=== PATIENT | female | born 1930 | race Caucasian/White ===

== ENCOUNTER → 2016-06-29 | Outpatient (CLI) | payer MEDICARE ==
[~2016-06-29] MED LIST: ALPHA LIPOIC A200 MG; AMARYL2 MG PO; AMLODIPINE5 MG; AMOXICILLIN500 MG PO; ASPIR-LOW81 MG; CATALYST; FLONASE 0.05% 121 EA NAS; LOPRESSOR25 MG; METFORMIN500 MG; MOTRIN800 MG PO; SIMVASTATIN40 MG; [UNRECOGNIZED DRUG - OTHER]; [UNRECOGNIZED DRUG - OTHER]
[2016-06-29 07:30] LABS: BASO % 0.5 % (0.0-1.0); EOS # 0.1 10*3/uL (0.0-0.4); HEMATOCRIT 42.1 % (37.0-47.0); HEMOGLOBIN 13.9 g/dl (12.0-16.0); LYMPH # 2.3 10*3/uL (1.3-4.4); LYMPH % 37.4 % (27.0-41.0); MEAN CELL VOLUME 88.8 fl (81.0-99.0); MEAN CORPUSCULAR HGB 29.3 pg (27.0-31.0); MEAN PLATELET VOLUME 9.8 fl (9.6-12.3); MONO # 0.5 10*3/uL (0.1-1.0); MONO % 7.7 % (3.0-9.0); NEUT # 3.3 10*3/uL (2.3-7.9); NEUT % 53.2 % (47.0-73.0); PLATELET COUNT AUTOMATED 217 10*3/uL (130-400); RED BLOOD COUNT 4.74 10*6/uL (4.10-5.10); RED CELL DISTRI WIDTH 11.9 % (0-14.5); WHITE BLOOD COUNT 6.2 10*3/uL (4.8-10.8)
[2016-06-29 07:55] LABS: ALBUMIN 3.7 gm/dl (3.1-4.5); ALKALINE PHOSPHATASE 51 U/L (45-117); BILIRUBIN, DIRECT 0.1 mg/dL (0.0-0.2); BILIRUBIN, TOTAL 0.7 mg/dl (0.2-1.0); BUN 20 mg/dl (7-24); CARBON DIOXIDE 30 mmol/L (21-32); CHLORIDE 106 mmol/L (98-107); EST GLOM FILT AFRICAN AMERICAN > 60 ml/min; GLUCOSE 145 mg/dL (65-99); POTASSIUM 3.9 mmol/L (3.5-5.1); SGOT/AST 21 IU/L (3-35); SGPT/ALT 25 U/L (12-78); SODIUM 141 mmol/L (136-145); TOTAL PROTEIN 7.6 gm/dL (6.4-8.2)
[2016-06-29 07:57] LABS: HEMOGLOBIN A1c 7.2 % (4.8-5.6)
== END | disposition home or self-care (01) ==
LOC: LAB 07:08
PROVIDERS: Family Medicine
DX: I10 Essential (primary) hypertension (principal); E11.9 Type 2 diabetes mellitus without complications

== ENCOUNTER 2016-08-26 14:22 | Emergency (ER) | payer MEDICARE ==
[~2016-08-26] VITALS: Wt 67.1 kg
[2016-08-26] MEDS ORDERED: CEPHALEXIN500 M1 PO (15:08)
[2016-08-26] MEDS ORDERED: CLARITIN10 MG PO (15:08)
[2016-08-26] MEDS ORDERED: BACTRIM DS 8001 TA1 PO (15:08)
== END 2016-08-26 15:16 | disposition home or self-care (01) ==
LOC: ED 14:22
DX: L03.115 Cellulitis of right lower limb (principal)

== ENCOUNTER → 2016-10-11 | Outpatient (CLI) | payer MEDICARE ==
[~2016-10-11] MED LIST changes: +BACTRIM DS 8001 TA1 PO; +CEPHALEXIN500 M1 PO; +CLARITIN10 MG PO
[2016-10-11 07:55] LABS: BASO % 0.4 % (0.0-1.0); EOS # 0.1 10*3/uL (0.0-0.4); EOS % 1.1 % (1.0-4.0); HEMATOCRIT 43.1 % (37.0-47.0); HEMOGLOBIN 14.1 g/dl (12.0-16.0); LYMPH % 35.4 % (27.0-41.0); MEAN CELL VOLUME 92.1 fl (81.0-99.0); MEAN CORPUSCULAR HGB 30.1 pg (27.0-31.0); MEAN CORPUSCULAR HGB CONC 32.7 g/dl (33.0-37.0); MEAN PLATELET VOLUME 10.3 fl (9.6-12.3); MONO # 0.5 10*3/uL (0.1-1.0); MONO % 8.9 % (3.0-9.0); NEUT % 54.2 % (47.0-73.0); PLATELET COUNT AUTOMATED 215 10*3/uL (130-400); RED BLOOD COUNT 4.68 10*6/uL (4.10-5.10); RED CELL DISTRI WIDTH 12.5 % (0-14.5); WHITE BLOOD COUNT 5.6 10*3/uL (4.8-10.8)
[2016-10-11 08:14] LABS: HEMOGLOBIN A1c 6.9 % (4.8-5.6)
[2016-10-11 08:25] LABS: CHLORIDE 105 mmol/L (98-107); POTASSIUM 4.1 mmol/L (3.5-5.1); SODIUM 139 mmol/L (136-145)
[2016-10-11 08:37] LABS: ALBUMIN 3.8 gm/dl (3.1-4.5); ALKALINE PHOSPHATASE 52 U/L (45-117); BILIRUBIN, DIRECT 0.1 mg/dL (0.0-0.2); BILIRUBIN, TOTAL 0.8 mg/dl (0.2-1.0); BUN 24 mg/dl (7-24); CARBON DIOXIDE 26 mmol/L (21-32); CHOLESTEROL 334 mg/dL (<200); EST GLOM FILT AFRICAN AMERICAN > 60 ml/min; GLUCOSE 166 mg/dL (65-99); HDL CHOLESTEROL 82 mg/dl (40-60); LDL CHOLESTEROL 237 mg/dL (9-159); SGOT/AST 30 IU/L (3-35); SGPT/ALT 30 U/L (12-78); THYROXINE (T4) TOTAL 10.8 ug/dl (4.8-13.9); TRIGLYCERIDES 77 mg/dl (<150); VLDL CHOLESTEROL 15 mg/dL (6-40)
== END | disposition home or self-care (01) ==
LOC: LAB 07:10
PROVIDERS: Family Medicine
DX: E11.9 Type 2 diabetes mellitus without complications (principal); I10 Essential (primary) hypertension

== ENCOUNTER 2016-12-13 13:57 | Inpatient (IN) | payer MEDICARE ==
[~2016-12-13] VITALS: Ht 162.5 cm; Wt 69.4 kg
--- NOTE | ~2016-12-13 | PROC NOTE ---
[place], [place] PROCEDURE NOTE NAME: FABIAN GARCIA UNIT #: [id number] ROOM: [facility] DOCTOR: LETTY YOU BIRTHDATE: [birth year] DOS: 12/14/2016 MODIFIED BARIUM SWALLOW LOCATION: ICCU ROOM: [facility] 3-1 ORDERING PHYSICIAN: Dr. Ramirez. RADIOLOGIST: Dr. Noriega. BACKGROUND INFORMATION: The patient, an 86-year-old female, was seen for a modified barium swallow. This test was ordered to rule out aspiration. The patient presents with pneumonia and change in mental status. She also reports coughing with liquids. Further medical history is significant for HTN, DM, history of malignant neoplasm of the colon occurring 15 years ago, leukocytosis and metabolic encephalopathy. The patient currently receives a regular diet and thin liquids. For today's assessment, she was alert and able to follow commands. Respiratory status was reported as within normal limits. The patient was not receiving oxygen and reported no shortness of breath. She was noted to frequently cough at rest prior to and during the examination. Oral peripheral examination revealed presence of upper denture with adequate fit reported. Lingual, labial, and buccal skills were within normal limits in terms of strength, range of motion, and coordination. The patient was able to volitionally cough and swallow. METHODS AND MATERIALS USED FOR THE EXAM: The patient was positioned in the lateral plane and examination was viewed under fluoroscopy. The patient was presented with a variety of consistencies to assess swallowing skills including applesauce mixed with barium presented in half teaspoon amounts, barium-coated banana presented in bite sized piece, barium-coated sandwich presented in bite size piece and thin liquid barium taken both by cup and straw. The patient consumed liquids in both single and consecutive sip size amounts. ORAL PHASE: Unremarkable. PHARYNGEAL PHASE: The pharyngeal swallow occurred within a timely manner. During the swallow, laryngeal elevation and epiglottic function were adequate. There was no residue in the pharynx post-swallow. There was one instance of patient consuming thin liquid by straw and consecutive sip sized amounts where a very mild amount of transient upper airway penetration occurred. No aspiration occurred with this or any consistency. ESOPHAGEAL PHASE: This phase of the swallow was not formally assessed during this examination. IMPRESSIONS AND RECOMMENDATIONS: Based upon assessment results, this 86-year-old female presents with swallowing skills that are within functional limits. The patient consumed puree, soft solid and thin liquids taken both by [place], [place] PROCEDURE NOTE NAME: FABIAN GARCIA UNIT #: [id number] ROOM: [facility] DOCTOR: LETTY YOU BIRTHDATE: [birth year] cup and straw. When consuming thin liquid by straw and consecutive sips, there was one instance of a very mild transient upper airway penetration occurring. This can occur in normal individuals, especially in advanced age. No aspiration occurred with any consistency. Recommend patient remain on present diet with use of universal safe swallow precautions. Results and recommendations were shared with the patient and family member that accompanied her. The patient's nurse was also informed and verbalized understanding. No followup therapy is warranted at this time. Thank you very much for this referral. Should you have any questions regarding this patient, please contact the speech pathologist at [phone]. LETTY YOU CM:PROCNOTE:PROCEDURE NOTE [id number] JULIANA VELAZQUEZ
[~2016-12-13 13:57] MED LIST changes: -AMLODIPINE5 MG; +NORVASC2.5 MG PO
[2016-12-13 14:07] VITALS: BP 130/90
[2016-12-13] MEDS ORDERED: AVPAK AZITHROM250 M1 PO (14:31)
[2016-12-13 14:37] LABS: HEMATOCRIT 37.3 % (37.0-47.0); HEMOGLOBIN 12.1 g/dl (12.0-16.0); MEAN CELL VOLUME 90.3 fl (81.0-99.0); MEAN CORPUSCULAR HGB 29.3 pg (27.0-31.0); MEAN CORPUSCULAR HGB CONC 32.4 g/dl (33.0-37.0); MEAN PLATELET VOLUME 10.3 fl (9.6-12.3); PLATELET COUNT AUTOMATED 241 10*3/uL (130-400); RED BLOOD COUNT 4.13 10*6/uL (4.10-5.10); RED CELL DISTRI WIDTH 11.9 % (0-14.5); WHITE BLOOD COUNT 20.1 10*3/uL (4.8-10.8)
[2016-12-13 14:41] VITALS: BP 126/61
[2016-12-13 14:46] LABS: ACT PARTIAL THROMBO TIME 25.3 SECONDS (20.8-31.5); INTERNATIONAL NORM RATIO 1.2 (2.0-3.5)
[2016-12-13 14:54] LABS: ALBUMIN 3.1 gm/dl (3.1-4.5); ALKALINE PHOSPHATASE 129 U/L (45-117); BUN 21 mg/dl (7-24); CHLORIDE 97 mmol/L (98-107); CREATININE 1.16 mg/dL (0.55-1.02); LIPASE 60 U/L (73-393); SGOT/AST 62 IU/L (3-35); SGPT/ALT 75 U/L (12-78); SODIUM 130 mmol/L (136-145)
[2016-12-13 14:56] LABS: TOTAL CELLS COUNTED 100 #CELLS; TROPONIN I < 0.015 ng/ml (<0.045)
[2016-12-13 14:57] LABS: PLATELET SUFFICIENCY NORMAL (NORMAL); POLYCHROMASIA SLIGHT
[2016-12-13 15:00] VITALS: BP 126/61
[2016-12-13 15:30] VITALS: BP 123/63
[2016-12-13 15:31] LABS: BILIRUBIN 1+ (NEGATIVE); BLOOD 2+ (NEGATIVE); CLARITY CLOUDY (CLEAR); GLUCOSE 3+ (NEGATIVE); KETONE NEGATIVE (NEGATIVE); LEUKO ESTERASE 1+ (NEGATIVE); NITRITE POSITIVE (NEGATIVE); PH 5.5 (5.0-9.0)
[2016-12-13 15:36] LABS: COLOR YELLOW (YELLOW)
[2016-12-13 15:37] LABS: BACTERIA 4+
[2016-12-13 15:38] LABS: WBC 51-100 wbc/hpf (0-5)
[2016-12-13 16:30] VITALS: BP 119/54; BP 124/64
--- NOTE | 2016-12-13 16:30 | NUR ---
A 86, admitted to ICCU, under the services of JULIANA Lees DO with a diagnosis of PNEUMONIA. Chief complaint is CONFUSION, FEVER. Patient arrived via wheel chair from ER. Monitor applied. Initial assessment completed. Vital signs taken and recorded. JULIANA LEES DO notified of admission to the unit. Orders received. See assessment for past medical history, medications and allergies. Patient and/or family oriented to unit. [facility]U visitation policy reviewed. Clothing/patient valuable form completed. KITTY SALAS
--- NOTE | 2016-12-13 19:45 | NUR ---
PT EVALUATED FOR A PRN BREATHING TX. PT HAS RIGHT LOWER LOBE CRACKLES. PT STATES SHE FEELS OK AT THIS TIME. INFORMED TO CALL IF SHE EVER FEELS SOB OR WHEEZY. SPO2 IS 93% ON ROOM AIR.
[2016-12-13 20:00] VITALS: BP 117/62
--- NOTE | 2016-12-13 21:50 | NUR ---
PATIENT HAS RECIEVED BREATHING TREATMENT PATIENT STILL CONTINUES TO HAVE A PRODUCTIVE COUGH AT THIS TIME.
--- NOTE | 2016-12-13 23:42 | NUR ---
PATIENT LYING IN BED PATIENT STILL COUGHING PRODUCTIVE COUGH FOR YELLOWISH BROWN SPUTUM. PATIENT DENIES ANY NEEDS AT THIS TIME. VITALS CURRENTLY STABLE. WILL CONTINUE TO MONITOR.
[2016-12-14] VITALS: BP 106/54
--- NOTE | 2016-12-14 02:31 | NUR ---
patient has been coughing all night called doctor kenisha who said he would put in for something for the cough.
--- NOTE | 2016-12-14 02:50 | NUR ---
24 HR chart check completed.
[2016-12-14 04:00] VITALS: BP 157/77
--- NOTE | 2016-12-14 04:40 | NUR ---
MEDICATED WITH PO ROBITUSSIN ORDERED PER PT REQUEST FOR C/O COUGH.
[2016-12-14 04:44] LABS: BASO % 0.1 % (0.0-1.0); EOS % 0.1 % (1.0-4.0); HEMATOCRIT 35.4 % (37.0-47.0); HEMOGLOBIN 11.6 g/dl (12.0-16.0); LYMPH % 6.9 % (27.0-41.0); MEAN CORPUSCULAR HGB 29.8 pg (27.0-31.0); MEAN CORPUSCULAR HGB CONC 32.8 g/dl (33.0-37.0); MEAN PLATELET VOLUME 10.2 fl (9.6-12.3); MONO # 1.2 10*3/uL (0.1-1.0); MONO % 8.2 % (3.0-9.0); NEUT % 84.2 % (47.0-73.0); PLATELET COUNT AUTOMATED 215 10*3/uL (130-400); RED BLOOD COUNT 3.89 10*6/uL (4.10-5.10); RED CELL DISTRI WIDTH 12.1 % (0-14.5); WHITE BLOOD COUNT 14.3 10*3/uL (4.8-10.8)
[2016-12-14 05:06] LABS: ACT PARTIAL THROMBO TIME 27.3 SECONDS (20.8-31.5); INTERNATIONAL NORM RATIO 1.3 (2.0-3.5)
[2016-12-14 05:16] LABS: ALBUMIN 2.6 gm/dl (3.1-4.5); ALKALINE PHOSPHATASE 111 U/L (45-117); BUN 16 mg/dl (7-24); CHLORIDE 110 mmol/L (98-107); CREATININE 0.88 mg/dL (0.55-1.02); MAGNESIUM 2.3 mg/dL (1.5-2.1); PHOSPHOROUS 1.8 mg/dL (2.5-4.9); POTASSIUM 3.9 mmol/L (3.5-5.1); SGOT/AST 28 IU/L (3-35); SGPT/ALT 51 U/L (12-78); SODIUM 141 mmol/L (136-145)
[2016-12-14 05:21] LABS: FREE T4 1.63 ng/dl (0.76-1.46)
--- NOTE | 2016-12-14 05:27 | NUR ---
CALLED DOCTOR NICHO WITH + BLOOD [facility] THIS MORNING. HE SAID HE WOULD LOOK AT IT.
[2016-12-14 06:40] LABS: VITAMIN D, 25-HYDROXY 21.4 ng/mL (30-100)
[2016-12-14 08:00] VITALS: BP 152/77
--- NOTE | 2016-12-14 08:54 | NUR ---
TO RAD VIA WC AND PORTABLE MONITOR FOR BS
--- NOTE | 2016-12-14 09:52 | NUR ---
PATIENT NOT AVAILABLE FOR ECHO. HAVING PROEDURE IN RADIOLOGY.
--- NOTE | 2016-12-14 09:58 | NUR ---
SPEECH PATHOLOGY MBS completed as per orders. Patient was alert and cooperative. She was challenged with puree, soft solid and thin liquids, taken both by cup and straw. Patient tolerated consistencies well. When consuming thin liquid by straw in consecutive sips, there was one instance of very mild transient upper airway penetration occurring. No aspiration occurred with any consistency. Recommend patient remain on present diet with use of universal safe swallow precautions. Results and adam. were shared with patient and family member that accompanied her. Patient's nurse was also informed and verbalized understanding. No follow up treatment is warranted at this time. Dictated report to follow. Thank you for this referral. LETTY YOU MSCCC-LOT TECHNICIAN
--- NOTE | 2016-12-14 10:30 | NUR ---
DR PEREZ SERVICE NOTIFIED OF CONSULT
--- NOTE | 2016-12-14 12:17 | NUR ---
PHYSICAL THERAPY Chart review done; pt off floor for testing. Will attempt eval later as able. Tisha Jacobsen, PT
--- NOTE | 2016-12-14 13:05 | NUR ---
TRANSFERRED TO 406, FAMILY AWARE OF MOVE, REPORT GIVEN
--- NOTE | 2016-12-14 13:34 | NUR ---
PHYSICAL THERAPY Patient with staff at this time. Thank you for this referral. Marleny oPtts,PT
[2016-12-14 16:00] VITALS: BP 146/90
--- NOTE | 2016-12-14 19:45 | NUR ---
GIVEN PRN ROBITUSSIN FOR COUGH PER PATIENT REQUEST.
[2016-12-14 20:00] VITALS: BP 126/62
[2016-12-15] VITALS: BP 140/90
[2016-12-15 05:50] LABS: CHLORIDE 107 mmol/L (98-107); POTASSIUM 3.7 mmol/L (3.5-5.1); SODIUM 140 mmol/L (136-145)
[2016-12-15 05:53] LABS: BASO % 0.3 % (0.0-1.0); EOS # 0.1 10*3/uL (0.0-0.4); EOS % 0.6 % (1.0-4.0); HEMATOCRIT 34.5 % (37.0-47.0); HEMOGLOBIN 11.3 g/dl (12.0-16.0); LYMPH # 1.2 10*3/uL (1.3-4.4); LYMPH % 12.1 % (27.0-41.0); MEAN CELL VOLUME 90.8 fl (81.0-99.0); MEAN CORPUSCULAR HGB 29.7 pg (27.0-31.0); MEAN CORPUSCULAR HGB CONC 32.8 g/dl (33.0-37.0); MEAN PLATELET VOLUME 10.4 fl (9.6-12.3); MONO % 9.8 % (3.0-9.0); NEUT # 7.9 10*3/uL (2.3-7.9); NEUT % 76.8 % (47.0-73.0); PLATELET COUNT AUTOMATED 242 10*3/uL (130-400); RED CELL DISTRI WIDTH 12.3 % (0-14.5); WHITE BLOOD COUNT 10.2 10*3/uL (4.8-10.8)
[2016-12-15 05:54] LABS: BUN 13 mg/dl (7-24); CREATININE 0.74 mg/dL (0.55-1.02)
--- NOTE | 2016-12-15 06:40 | NUR ---
24 HR chart check completed.
[2016-12-15 08:00] VITALS: BP 137/79
[2016-12-15 12:00] VITALS: BP 136/80
[2016-12-15 16:00] VITALS: BP 117/66
[2016-12-15 20:00] VITALS: BP 118/58
--- NOTE | 2016-12-15 21:34 | NUR ---
Medicated with Restoril po prn for help with sleep. Will monitor effectiveness. Call light within reach.
--- NOTE | 2016-12-15 22:30 | NUR ---
Patient resting quietly in bed with eyes closed. Restoril effective. Will continue to monitor. Call light within reach.
[2016-12-16] VITALS: BP 140/79
--- NOTE | 2016-12-16 00:32 | NUR ---
24 HR chart check completed.
[2016-12-16 08:00] VITALS: BP 144/73
[2016-12-16 12:00] VITALS: BP 136/75
[2016-12-16 16:00] VITALS: BP 133/70
--- NOTE | 2016-12-16 18:55 | NUR ---
pt states her breathing is good and does not need a satx..states she will call if needed
[2016-12-16 20:00] VITALS: BP 130/73
[2016-12-17] VITALS: BP 145/82
--- NOTE | 2016-12-17 00:34 | NUR ---
24 HR chart check completed.
[2016-12-17 08:00] VITALS: BP 151/90
--- NOTE | 2016-12-17 09:32 | NUR ---
Wallcovering Hanger in to talk to patient. Patient states lives at home with alone. There are no steps in the home. Physician: eliana perry Pharmacy: [facility] health services: none Patient's level of ADLs: INDEPENDENT Patient has working utilities: all working DME: none Follow-up physician's appointment after d/c: will be made by hosptialist nurse director upon discharge Does patient want to access PORTAL?: no Discharge plan discussed with patient, patient lives in an apartment alone, she states she is independent in adls and ambulation, drives, patient states she will be going home when able and denies any home needs. KARIN MOSLEY
[2016-12-17] MEDS ORDERED: NEURONTIN300 MG PO (09:44)
[2016-12-17] MEDS ORDERED: CODEINE-GUAIFE120 M1 PO (09:46)
--- NOTE | 2016-12-17 09:46 | NUR ---
VERIFIED MEDS WITH RIMA AT [facility]. DR PERDUE NOTIFIED
[2016-12-17] MEDS ORDERED: LEVAQUIN750 M1 PO (09:59)
[2016-12-17] MEDS ORDERED: NORVASC5 MG PO (09:59)
--- NOTE | 2016-12-17 10:22 | NUR ---
PHYSICAL THERAPY PAtient evaluated on 4, full evaluation to follow. D/c PT after evaluation, patient (I) with no skilled PT needs. Thank you for this referral. Marleny Potts,PT
--- NOTE | 2016-12-17 10:32 | NUR ---
Discharge instructions reviewed with patient/family. Patient receptive and verbalizes understanding. Follow-up care arranged. Written instructions given to patient/family. DEMAR RIZZO
--- NOTE | 2016-12-17 10:46 | NUR ---
PATIENT AMBULATED TO THE EXIT WITH DAUGHTER. PATIENT IS D/C HOME
== END 2016-12-17 10:46 | disposition home or self-care (01) | DRG 871 ==
LOC: ED 13:57 → EDHOLD 15:10 → ICCU 15:10 → 4E 12-14 12:06
PROVIDERS: Internal Medicine; Nurse Practitioner Family; ADMIT Internal Medicine
PROC: F00ZJWZ Instrumental Swallowing and Oral Function Assessment using Swallowing Equipment (ICD-10-PCS; principal; 2016-12-14)
DX: A41.9 Sepsis, unspecified organism (principal); G93.41 Metabolic encephalopathy; N17.0 Acute kidney failure with tubular necrosis; J18.9 Pneumonia, unspecified organism; E87.1 Hypo-osmolality and hyponatremia; N39.0 Urinary tract infection, site not specified; E11.65 Type 2 diabetes mellitus with hyperglycemia; R65.20 Severe sepsis without septic shock; E87.8 Other disorders of electrolyte and fluid balance, not elsewhere classified; R31.9 Hematuria, unspecified; Z60.2 Problems related to living alone; E55.9 Vitamin D deficiency, unspecified; D64.9 Anemia, unspecified; I10 Essential (primary) hypertension; Z85.038 Personal history of other malignant neoplasm of large intestine; Z79.899 Other long term (current) drug therapy; Z90.710 Acquired absence of both cervix and uterus; Z90.49 Acquired absence of other specified parts of digestive tract; Z98.42 Cataract extraction status, left eye; Z98.41 Cataract extraction status, right eye; Z82.49 Family history of ischemic heart disease and other diseases of the circulatory system; Z80.1 Family history of malignant neoplasm of trachea, bronchus and lung; Z79.82 Long term (current) use of aspirin

== ENCOUNTER → 2017-01-15 | Outpatient (CLI) | payer MEDICARE ==
[~2017-01-15] MED LIST changes: +AVPAK AZITHROM250 M1 PO; +CODEINE-GUAIFE120 M1 PO; +LEVAQUIN750 M1 PO; +NEURONTIN300 MG PO; +NORVASC5 MG PO
[2017-01-15 08:22] LABS: BASO % 0.5 % (0.0-1.0); EOS # 0.1 10*3/uL (0.0-0.4); EOS % 1.6 % (1.0-4.0); HEMATOCRIT 41.5 % (37.0-47.0); HEMOGLOBIN 13.5 g/dl (12.0-16.0); LYMPH # 2.2 10*3/uL (1.3-4.4); LYMPH % 38.9 % (27.0-41.0); MEAN CELL VOLUME 89.8 fl (81.0-99.0); MEAN CORPUSCULAR HGB 29.2 pg (27.0-31.0); MEAN CORPUSCULAR HGB CONC 32.5 g/dl (33.0-37.0); MEAN PLATELET VOLUME 10.2 fl (9.6-12.3); MONO # 0.4 10*3/uL (0.1-1.0); MONO % 7.7 % (3.0-9.0); NEUT # 2.9 10*3/uL (2.3-7.9); NEUT % 51.1 % (47.0-73.0); PLATELET COUNT AUTOMATED 198 10*3/uL (130-400); RED BLOOD COUNT 4.62 10*6/uL (4.10-5.10); RED CELL DISTRI WIDTH 12.8 % (0-14.5); WHITE BLOOD COUNT 5.7 10*3/uL (4.8-10.8)
[2017-01-15 08:26] LABS: ALBUMIN 3.6 gm/dl (3.1-4.5); BILIRUBIN, DIRECT 0.1 mg/dL (0.0-0.2); BUN 22 mg/dl (7-24); CHLORIDE 105 mmol/L (98-107); CREATININE 0.83 mg/dL (0.55-1.02); POTASSIUM 3.9 mmol/L (3.5-5.1); SGOT/AST 20 IU/L (3-35); SGPT/ALT 25 U/L (12-78); SODIUM 141 mmol/L (136-145)
[2017-01-15 08:27] LABS: ALKALINE PHOSPHATASE 57 U/L (45-117); TOTAL PROTEIN 7.6 gm/dL (6.4-8.2)
== END | disposition home or self-care (01) ==
LOC: LAB 07:25
PROVIDERS: Family Medicine
DX: E11.9 Type 2 diabetes mellitus without complications (principal); I10 Essential (primary) hypertension

== ENCOUNTER → 2017-04-16 | Outpatient (CLI) | payer MEDICARE ==
[2017-04-16 08:45] LABS: BASO % 0.4 % (0.0-1.0); EOS # 0.1 10*3/uL (0.0-0.4); EOS % 1.6 % (1.0-4.0); HEMATOCRIT 42.1 % (37.0-47.0); LYMPH # 2.4 10*3/uL (1.3-4.4); LYMPH % 34.9 % (27.0-41.0); MEAN CELL VOLUME 88.4 fl (81.0-99.0); MEAN CORPUSCULAR HGB 29.4 pg (27.0-31.0); MEAN CORPUSCULAR HGB CONC 33.3 g/dl (33.0-37.0); MEAN PLATELET VOLUME 10.2 fl (9.6-12.3); MONO # 0.5 10*3/uL (0.1-1.0); MONO % 7.4 % (3.0-9.0); NEUT # 3.7 10*3/uL (2.3-7.9); NEUT % 55.6 % (47.0-73.0); PLATELET COUNT AUTOMATED 221 10*3/uL (130-400); RED BLOOD COUNT 4.76 10*6/uL (4.10-5.10); RED CELL DISTRI WIDTH 12.2 % (0-14.5); WHITE BLOOD COUNT 6.7 10*3/uL (4.8-10.8)
[2017-04-16 08:55] LABS: ALBUMIN 3.5 gm/dl (3.1-4.5); ALKALINE PHOSPHATASE 57 U/L (45-117); BILIRUBIN, DIRECT < 0.1 mg/dL (0.0-0.2); BUN 23 mg/dl (7-24); CHLORIDE 107 mmol/L (98-107); CREATININE 1.16 mg/dL (0.55-1.02); POTASSIUM 4.2 mmol/L (3.5-5.1); SGOT/AST 20 IU/L (3-35); SGPT/ALT 27 U/L (12-78); SODIUM 142 mmol/L (136-145); TOTAL PROTEIN 7.6 gm/dL (6.4-8.2)
== END | disposition home or self-care (01) ==
LOC: LAB 08:08
PROVIDERS: Family Medicine
DX: I10 Essential (primary) hypertension (principal); E11.9 Type 2 diabetes mellitus without complications

== ENCOUNTER → 2017-05-15 | Outpatient (CLI) | payer MEDICARE ==
[2017-05-15 09:30] LABS: BUN 28 mg/dl (7-24); CHLORIDE 106 mmol/L (98-107); CREATININE 0.87 mg/dL (0.55-1.02); POTASSIUM 3.7 mmol/L (3.5-5.1); SODIUM 139 mmol/L (136-145)
== END | disposition home or self-care (01) ==
LOC: LAB 08:49
PROVIDERS: Family Medicine
DX: N28.9 Disorder of kidney and ureter, unspecified (principal)

== ENCOUNTER → 2017-07-15 | Outpatient (CLI) | payer MEDICARE ==
[2017-07-15 09:01] LABS: BASO % 0.5 % (0.0-1.0); EOS # 0.1 10*3/uL (0.0-0.4); HEMATOCRIT 44.1 % (37.0-47.0); LYMPH # 2.1 10*3/uL (1.3-4.4); LYMPH % 33.2 % (27.0-41.0); MEAN CELL VOLUME 91.5 fl (81.0-99.0); MEAN CORPUSCULAR HGB CONC 31.7 g/dl (33.0-37.0); MEAN PLATELET VOLUME 10.3 fl (9.6-12.3); MONO # 0.5 10*3/uL (0.1-1.0); MONO % 7.6 % (3.0-9.0); NEUT # 3.6 10*3/uL (2.3-7.9); NEUT % 57.4 % (47.0-73.0); PLATELET COUNT AUTOMATED 235 10*3/uL (130-400); RED BLOOD COUNT 4.82 10*6/uL (4.10-5.10); RED CELL DISTRI WIDTH 12.4 % (0-14.5); WHITE BLOOD COUNT 6.2 10*3/uL (4.8-10.8)
[2017-07-15 09:15] LABS: ALBUMIN 3.7 gm/dl (3.1-4.5); BILIRUBIN, DIRECT 0.1 mg/dL (0.0-0.2); BUN 26 mg/dl (7-24); CHLORIDE 105 mmol/L (98-107); CREATININE 0.87 mg/dL (0.55-1.02); POTASSIUM 3.7 mmol/L (3.5-5.1); SGOT/AST 21 IU/L (3-35); SODIUM 141 mmol/L (136-145)
[2017-07-15 09:20] LABS: ALKALINE PHOSPHATASE 56 U/L (45-117); SGPT/ALT 23 U/L (12-78)
== END | disposition home or self-care (01) ==
LOC: LAB 08:15
PROVIDERS: Family Medicine
DX: I10 Essential (primary) hypertension (principal); E11.9 Type 2 diabetes mellitus without complications

== ENCOUNTER → 2017-10-16 | Outpatient (CLI) | payer MEDICARE ==
[2017-10-16 08:23] LABS: ALBUMIN 3.7 gm/dl (3.1-4.5); ALKALINE PHOSPHATASE 43 U/L (45-117); BILIRUBIN, DIRECT 0.1 mg/dL (0.0-0.2); BUN 23 mg/dl (7-24); CHLORIDE 107 mmol/L (98-107); CHOLESTEROL 272 mg/dL (<200); CREATININE 0.93 mg/dL (0.55-1.02); HDL CHOLESTEROL 89 mg/dl (40-60); LDL CHOLESTEROL 167 mg/dL (9-159); POTASSIUM 3.9 mmol/L (3.5-5.1); SGOT/AST 19 IU/L (3-35); SGPT/ALT 23 U/L (12-78); SODIUM 140 mmol/L (136-145); THYROXINE (T4) TOTAL 11.3 ug/dl (4.8-13.9); TOTAL PROTEIN 7.5 gm/dL (6.4-8.2); TRIGLYCERIDES 79 mg/dl (<150); VLDL CHOLESTEROL 16 mg/dL (6-40)
[2017-10-16 08:28] LABS: BASO % 0.6 % (0.0-1.0); EOS # 0.1 10*3/uL (0.0-0.4); EOS % 1.5 % (1.0-4.0); HEMATOCRIT 42.2 % (37.0-47.0); HEMOGLOBIN 13.8 g/dl (12.0-16.0); LYMPH # 1.9 10*3/uL (1.3-4.4); LYMPH % 35.9 % (27.0-41.0); MEAN CORPUSCULAR HGB 29.4 pg (27.0-31.0); MEAN CORPUSCULAR HGB CONC 32.7 g/dl (33.0-37.0); MEAN PLATELET VOLUME 10.8 fl (9.6-12.3); MONO # 0.5 10*3/uL (0.1-1.0); MONO % 8.9 % (3.0-9.0); NEUT # 2.8 10*3/uL (2.3-7.9); NEUT % 52.9 % (47.0-73.0); PLATELET COUNT AUTOMATED 198 10*3/uL (130-400); RED BLOOD COUNT 4.69 10*6/uL (4.10-5.10); RED CELL DISTRI WIDTH 12.2 % (0-14.5); WHITE BLOOD COUNT 5.3 10*3/uL (4.8-10.8)
== END | disposition home or self-care (01) ==
LOC: LAB 07:25
PROVIDERS: Family Medicine
DX: Z00.01 Encounter for general adult medical examination with abnormal findings (principal); E11.9 Type 2 diabetes mellitus without complications; I10 Essential (primary) hypertension

== ENCOUNTER → 2018-01-10 | Outpatient (CLI) | payer MEDICARE ==
[2018-01-10 08:06] LABS: BASO % 0.4 % (0.0-1.0); EOS # 0.1 10*3/uL (0.0-0.4); EOS % 1.2 % (1.0-4.0); HEMATOCRIT 42.5 % (37.0-47.0); HEMOGLOBIN 13.8 g/dl (12.0-16.0); LYMPH # 1.8 10*3/uL (1.3-4.4); LYMPH % 31.9 % (27.0-41.0); MEAN CORPUSCULAR HGB 29.2 pg (27.0-31.0); MEAN CORPUSCULAR HGB CONC 32.5 g/dl (33.0-37.0); MEAN PLATELET VOLUME 10.1 fl (9.6-12.3); MONO # 0.4 10*3/uL (0.1-1.0); MONO % 7.4 % (3.0-9.0); NEUT # 3.3 10*3/uL (2.3-7.9); NEUT % 58.9 % (47.0-73.0); PLATELET COUNT AUTOMATED 220 10*3/uL (130-400); RED BLOOD COUNT 4.72 10*6/uL (4.10-5.10); RED CELL DISTRI WIDTH 12.1 % (0-14.5); WHITE BLOOD COUNT 5.7 10*3/uL (4.8-10.8)
[2018-01-10 08:27] LABS: ALBUMIN 3.7 gm/dl (3.1-4.5); ALKALINE PHOSPHATASE 52 U/L (45-117); BILIRUBIN, DIRECT < 0.1 mg/dL (0.0-0.2); BUN 23 mg/dl (7-24); CHLORIDE 106 mmol/L (98-107); CREATININE 0.88 mg/dL (0.55-1.02); POTASSIUM 3.8 mmol/L (3.5-5.1); SGOT/AST 19 IU/L (3-35); SGPT/ALT 24 U/L (12-78); SODIUM 140 mmol/L (136-145); TOTAL PROTEIN 7.5 gm/dL (6.4-8.2)
== END | disposition home or self-care (01) ==
LOC: LAB 07:17
PROVIDERS: Family Medicine
DX: E11.9 Type 2 diabetes mellitus without complications (principal); I10 Essential (primary) hypertension

== ENCOUNTER → 2018-04-15 | Outpatient (CLI) | payer MEDICARE ==
[2018-04-15 08:34] LABS: BASO % 0.5 % (0.0-1.0); EOS # 0.1 10*3/uL (0.0-0.4); EOS % 1.1 % (1.0-4.0); HEMATOCRIT 43.1 % (37.0-47.0); LYMPH # 1.8 10*3/uL (1.3-4.4); LYMPH % 28.8 % (27.0-41.0); MEAN CORPUSCULAR HGB 29.2 pg (27.0-31.0); MEAN CORPUSCULAR HGB CONC 32.5 g/dl (33.0-37.0); MONO # 0.5 10*3/uL (0.1-1.0); MONO % 8.2 % (3.0-9.0); NEUT # 3.8 10*3/uL (2.3-7.9); NEUT % 61.2 % (47.0-73.0); PLATELET COUNT AUTOMATED 203 10*3/uL (130-400); RED BLOOD COUNT 4.79 10*6/uL (4.10-5.10); RED CELL DISTRI WIDTH 12.3 % (0-14.5); WHITE BLOOD COUNT 6.1 10*3/uL (4.8-10.8)
[2018-04-15 09:02] LABS: ALBUMIN 3.6 gm/dl (3.1-4.5); ALKALINE PHOSPHATASE 49 U/L (45-117); BILIRUBIN, DIRECT 0.1 mg/dL (0.0-0.2); BUN 26 mg/dl (7-24); CHLORIDE 108 mmol/L (98-107); CREATININE 0.98 mg/dL (0.55-1.02); POTASSIUM 4.2 mmol/L (3.5-5.1); SGOT/AST 19 IU/L (3-35); SGPT/ALT 26 U/L (12-78); SODIUM 141 mmol/L (136-145); TOTAL PROTEIN 7.5 gm/dL (6.4-8.2)
== END | disposition home or self-care (01) ==
LOC: LAB 08:03
PROVIDERS: Family Medicine
DX: I10 Essential (primary) hypertension (principal); E11.9 Type 2 diabetes mellitus without complications; M81.0 Age-related osteoporosis without current pathological fracture

== ENCOUNTER → 2018-07-21 | Outpatient (CLI) | payer MEDICARE ==
[2018-07-21 09:36] LABS: BASO % 0.6 % (0.0-1.0); EOS # 0.1 10*3/uL (0.0-0.4); EOS % 1.7 % (1.0-4.0); HEMATOCRIT 44.1 % (37.0-47.0); HEMOGLOBIN 14.4 g/dl (12.0-16.0); LYMPH % 36.6 % (27.0-41.0); MEAN CELL VOLUME 90.6 fl (81.0-99.0); MEAN CORPUSCULAR HGB 29.6 pg (27.0-31.0); MEAN CORPUSCULAR HGB CONC 32.7 g/dl (33.0-37.0); MEAN PLATELET VOLUME 10.3 fl (9.6-12.3); MONO # 0.5 10*3/uL (0.1-1.0); MONO % 8.4 % (3.0-9.0); NEUT # 2.8 10*3/uL (2.3-7.9); NEUT % 52.5 % (47.0-73.0); PLATELET COUNT AUTOMATED 221 10*3/uL (130-400); RED BLOOD COUNT 4.87 10*6/uL (4.10-5.10); RED CELL DISTRI WIDTH 12.2 % (0-14.5); WHITE BLOOD COUNT 5.3 10*3/uL (4.8-10.8)
[2018-07-21 10:03] LABS: ALBUMIN 3.8 gm/dl (3.1-4.5); BILIRUBIN, DIRECT 0.1 mg/dL (0.0-0.2); BUN 22 mg/dl (7-24); CHLORIDE 108 mmol/L (98-107); CREATININE 0.92 mg/dL (0.55-1.02); POTASSIUM 3.9 mmol/L (3.5-5.1); SGOT/AST 16 IU/L (3-35); SGPT/ALT 23 U/L (12-78); SODIUM 141 mmol/L (136-145); TOTAL PROTEIN 7.8 gm/dL (6.4-8.2)
[2018-07-21 10:04] LABS: ALKALINE PHOSPHATASE 51 U/L (45-117)
== END | disposition home or self-care (01) ==
LOC: LAB 08:39
PROVIDERS: Family Medicine
DX: E11.9 Type 2 diabetes mellitus without complications (principal); I10 Essential (primary) hypertension; E55.9 Vitamin D deficiency, unspecified

== ENCOUNTER → 2018-10-28 | Outpatient (CLI) | payer MEDICARE ==
[2018-10-28 08:42] LABS: BASO % 0.7 % (0.0-1.0); EOS # 0.1 10*3/uL (0.0-0.4); EOS % 1.5 % (1.0-4.0); HEMATOCRIT 40.9 % (37.0-47.0); LYMPH # 1.9 10*3/uL (1.3-4.4); LYMPH % 32.3 % (27.0-41.0); MEAN CELL VOLUME 91.9 fl (81.0-99.0); MEAN CORPUSCULAR HGB 29.2 pg (27.0-31.0); MEAN CORPUSCULAR HGB CONC 31.8 g/dl (33.0-37.0); MEAN PLATELET VOLUME 10.5 fl (9.6-12.3); MONO # 0.5 10*3/uL (0.1-1.0); MONO % 8.6 % (3.0-9.0); NEUT # 3.4 10*3/uL (2.3-7.9); NEUT % 56.7 % (47.0-73.0); PLATELET COUNT AUTOMATED 228 10*3/uL (130-400); RED BLOOD COUNT 4.45 10*6/uL (4.10-5.10); RED CELL DISTRI WIDTH 12.5 % (0-14.5); WHITE BLOOD COUNT 5.9 10*3/uL (4.8-10.8)
[2018-10-28 09:10] LABS: ALBUMIN 3.5 gm/dl (3.1-4.5); ALKALINE PHOSPHATASE 51 U/L (45-117); BILIRUBIN, DIRECT 0.1 mg/dL (0.0-0.2); BUN 27 mg/dl (7-24); CHLORIDE 109 mmol/L (98-107); CREATININE 0.96 mg/dL (0.55-1.02); SGOT/AST 22 IU/L (3-35); SGPT/ALT 21 U/L (12-78); SODIUM 141 mmol/L (136-145); TOTAL PROTEIN 7.2 gm/dL (6.4-8.2)
== END | disposition home or self-care (01) ==
LOC: LAB 07:52
PROVIDERS: Family Medicine
DX: I10 Essential (primary) hypertension (principal); E11.9 Type 2 diabetes mellitus without complications

== ENCOUNTER → 2019-01-26 | Outpatient (CLI) | payer MEDICARE ==
[2019-01-26 09:42] LABS: BASO % 0.4 % (0.0-1.0); EOS # 0.1 10*3/uL (0.0-0.4); EOS % 0.9 % (1.0-4.0); HEMATOCRIT 42.5 % (37.0-47.0); HEMOGLOBIN 13.7 g/dl (12.0-16.0); LYMPH # 2.3 10*3/uL (1.3-4.4); LYMPH % 32.6 % (27.0-41.0); MEAN CELL VOLUME 91.6 fl (81.0-99.0); MEAN CORPUSCULAR HGB 29.5 pg (27.0-31.0); MEAN CORPUSCULAR HGB CONC 32.2 g/dl (33.0-37.0); MEAN PLATELET VOLUME 10.3 fl (9.6-12.3); MONO # 0.5 10*3/uL (0.1-1.0); MONO % 7.4 % (3.0-9.0); NEUT # 4.1 10*3/uL (2.3-7.9); NEUT % 58.4 % (47.0-73.0); PLATELET COUNT AUTOMATED 222 10*3/uL (130-400); RED BLOOD COUNT 4.64 10*6/uL (4.10-5.10)
[2019-01-26 10:08] LABS: CHLORIDE 108 mmol/L (98-107); POTASSIUM 3.9 mmol/L (3.5-5.1); SODIUM 140 mmol/L (136-145)
[2019-01-26 10:16] LABS: ALBUMIN 3.7 gm/dl (3.1-4.5); ALKALINE PHOSPHATASE 51 U/L (45-117); BILIRUBIN, DIRECT 0.1 mg/dL (0.0-0.2); BUN 23 mg/dl (7-24); CREATININE 0.87 mg/dL (0.55-1.02); SGOT/AST 24 IU/L (3-35); SGPT/ALT 22 U/L (12-78); TOTAL PROTEIN 7.8 gm/dL (6.4-8.2)
== END | disposition home or self-care (01) ==
LOC: LAB 08:57
PROVIDERS: Family Medicine
DX: E11.9 Type 2 diabetes mellitus without complications (principal); I10 Essential (primary) hypertension

== ENCOUNTER → 2019-04-13 | Outpatient (CLI) | payer MEDICARE ==
[2019-04-13 08:33] LABS: BASO % 0.6 % (0.0-1.0); EOS # 0.1 10*3/uL (0.0-0.4); EOS % 1.4 % (1.0-4.0); HEMOGLOBIN 13.7 g/dl (12.0-16.0); LYMPH # 1.7 10*3/uL (1.3-4.4); MEAN CELL VOLUME 91.7 fl (81.0-99.0); MEAN CORPUSCULAR HGB 29.2 pg (27.0-31.0); MEAN CORPUSCULAR HGB CONC 31.9 g/dl (33.0-37.0); MEAN PLATELET VOLUME 10.4 fl (9.6-12.3); MONO # 0.3 10*3/uL (0.1-1.0); MONO % 6.7 % (3.0-9.0); NEUT # 2.8 10*3/uL (2.3-7.9); NEUT % 57.1 % (47.0-73.0); PLATELET COUNT AUTOMATED 204 10*3/uL (130-400); RED BLOOD COUNT 4.69 10*6/uL (4.10-5.10); RED CELL DISTRI WIDTH 12.2 % (0-14.5); WHITE BLOOD COUNT 4.9 10*3/uL (4.8-10.8)
[2019-04-13 09:05] LABS: ALBUMIN 3.6 gm/dl (3.1-4.5); ALKALINE PHOSPHATASE 51 U/L (45-117); BILIRUBIN, DIRECT 0.1 mg/dL (0.0-0.2); BUN 22 mg/dl (7-24); CHLORIDE 110 mmol/L (98-107); CHOLESTEROL 283 mg/dL (<200); CREATININE 0.96 mg/dL (0.55-1.02); HDL CHOLESTEROL 89 mg/dl (40-60); LDL CHOLESTEROL 171 mg/dL (9-159); SGOT/AST 18 IU/L (3-35); SGPT/ALT 25 U/L (12-78); SODIUM 141 mmol/L (136-145); THYROXINE (T4) TOTAL 11.3 ug/dl (4.8-13.9); TOTAL PROTEIN 7.3 gm/dL (6.4-8.2); TRIGLYCERIDES 114 mg/dl (<150); VLDL CHOLESTEROL 23 mg/dL (6-40)
== END | disposition home or self-care (01) ==
LOC: LAB 08:05
PROVIDERS: Family Medicine
DX: E11.9 Type 2 diabetes mellitus without complications (principal); I10 Essential (primary) hypertension; E55.9 Vitamin D deficiency, unspecified

== ENCOUNTER → 2019-07-20 | Outpatient (CLI) | payer MEDICARE ==
[2019-07-20 08:41] LABS: BASO % 0.6 % (0.0-1.0); EOS # 0.1 10*3/uL (0.0-0.4); EOS % 1.4 % (1.0-4.0); LYMPH # 2.1 10*3/uL (1.3-4.4); LYMPH % 32.7 % (27.0-41.0); MEAN CELL VOLUME 90.6 fl (81.0-99.0); MEAN CORPUSCULAR HGB 29.5 pg (27.0-31.0); MEAN CORPUSCULAR HGB CONC 32.6 g/dl (33.0-37.0); MEAN PLATELET VOLUME 10.3 fl (9.6-12.3); MONO # 0.5 10*3/uL (0.1-1.0); MONO % 8.1 % (3.0-9.0); NEUT # 3.6 10*3/uL (2.3-7.9); NEUT % 56.9 % (47.0-73.0); PLATELET COUNT AUTOMATED 231 10*3/uL (130-400); RED BLOOD COUNT 5.08 10*6/uL (4.10-5.10); RED CELL DISTRI WIDTH 12.1 % (0-14.5); WHITE BLOOD COUNT 6.4 10*3/uL (4.8-10.8)
[2019-07-20 09:17] LABS: ALKALINE PHOSPHATASE 57 U/L (45-117); BUN 22 mg/dl (7-24); CHLORIDE 107 mmol/L (98-107); POTASSIUM 3.9 mmol/L (3.5-5.1); SODIUM 139 mmol/L (136-145)
[2019-07-20 09:20] LABS: BILIRUBIN, DIRECT 0.1 mg/dL (0.0-0.2); CREATININE 0.93 mg/dL (0.55-1.02); SGOT/AST 16 IU/L (3-35); SGPT/ALT 23 U/L (12-78); TOTAL PROTEIN 8.4 gm/dL (6.4-8.2)
== END | disposition home or self-care (01) ==
LOC: LAB 08:10
PROVIDERS: Family Medicine
DX: E11.9 Type 2 diabetes mellitus without complications (principal); I10 Essential (primary) hypertension